=== PATIENT | female | born 1940 | race Caucasian/White ===

== ENCOUNTER 2021-11-29 09:14 | Emergency (ER) | payer MEDICARE, OTHER | END 2021-11-29 10:31 | disposition home or self-care (01) | LOC: NAV ERS 09:14 | DX: T63.461A Toxic effect of venom of wasps, accidental (unintentional), initial encounter (principal); I10 Essential (primary) hypertension; Z79.82 Long term (current) use of aspirin; Z79.899 Other long term (current) drug therapy | CPT/HCPCS: 99283 ==

== ENCOUNTER 2023-09-06 11:20 | Emergency (ER) | payer MEDICARE, OTHER | END 2023-09-06 12:00 | disposition home or self-care (01) | LOC: NAV ERS 11:20 | DX: U07.1 COVID-19 (principal); R03.0 Elevated blood-pressure reading, without diagnosis of hypertension; I10 Essential (primary) hypertension; Z79.899 Other long term (current) drug therapy; Z79.82 Long term (current) use of aspirin | CPT/HCPCS: 87635; 87804; 87807; 99283 ==